=== PATIENT | male | born 1940 | race Caucasian/White ===

== ENCOUNTER → 2016-12-17 | Outpatient (CLI) | payer MEDICARE, OTHER ==
[2016-12-17 09:05] LABS: ALANINE AMINOTRANSFERASE 32 U/L (21-72); ALBUMIN 4.4 g/dL (3.5-5.0); ALKALINE PHOSPHATASE 24 U/L (38-126); ASPARTATE AMINO TRANSFERASE 28 U/L (17-59); BILIRUBIN,DIRECT 0.2 mg/dL (0.0-0.4); CHOLESTEROL 166.42 mg/dL (0-200); Direct HDL 39 mg/dL (>40); TOTAL PROTEIN 7.1 g/dL (6.3-8.2); TRIGLYCERIDES 164 mg/dL (<150)
[2016-12-17 09:16] LABS: DIRECT LDL 107 mg/dL (<100)
[2016-12-17 09:19] LABS: VLDL CHOLESTEROL 32.8 mg/dL (10-31)
== END ==
LOC: OD 07:26
PROVIDERS: ATTEND Specialist
DX: Z79.899 Other long term (current) drug therapy (principal); E78.4 Other hyperlipidemia
CPT/HCPCS: 36415; 80061; 80076

== ENCOUNTER → 2017-04-15 | Outpatient (CLI) | payer MEDICARE, OTHER ==
[2017-04-15 09:02] LABS: ALANINE AMINOTRANSFERASE 41 U/L (21-72); ALBUMIN 4.3 g/dL (3.5-5.0); ALKALINE PHOSPHATASE 21 U/L (38-126); ASPARTATE AMINO TRANSFERASE 28 U/L (17-59); BILIRUBIN,DIRECT 0.4 mg/dL (0.0-0.4); CHOLESTEROL 153.74 mg/dL (0-200); Direct HDL 37 mg/dL (>40); TOTAL PROTEIN 6.8 g/dL (6.3-8.2); TRIGLYCERIDES 132 mg/dL (<150)
[2017-04-15 09:13] LABS: DIRECT LDL 97 mg/dL (<100)
== END ==
LOC: OD 07:53
PROVIDERS: ATTEND Specialist
DX: E78.4 Other hyperlipidemia (principal); E66.8 Other obesity; I10 Essential (primary) hypertension; I25.10 Atherosclerotic heart disease of native coronary artery without angina pectoris; E03.9 Hypothyroidism, unspecified; I34.0 Nonrheumatic mitral (valve) insufficiency; R01.1 Cardiac murmur, unspecified; R94.31 Abnormal electrocardiogram [ECG] [EKG]; Z95.1 Presence of aortocoronary bypass graft; Z79.899 Other long term (current) drug therapy
CPT/HCPCS: 36415; 80061; 80076

== ENCOUNTER → 2017-10-14 | Outpatient (CLI) | payer MEDICARE, OTHER ==
[2017-10-14 09:00] LABS: ALANINE AMINOTRANSFERASE 35 U/L (21-72); ALBUMIN 4.5 g/dL (3.5-5.0); ASPARTATE AMINO TRANSFERASE 32 U/L (17-59); BILIRUBIN,DIRECT 0.3 mg/dL (0.0-0.4); CHOLESTEROL 159.49 mg/dL (0-200); NEONATAL BILIRUBIN RESULT 0.7 mg/dL (0.1-1.1); TRIGLYCERIDES 163 mg/dL (<150)
[2017-10-14 09:12] LABS: DIRECT LDL 94 mg/dL (<100)
[2017-10-14 09:16] LABS: ALKALINE PHOSPHATASE < 20 U/L (38-126); VLDL CHOLESTEROL 32.6 mg/dL (10-31)
== END ==
LOC: OD 07:59
PROVIDERS: ATTEND Specialist
DX: E78.4 Other hyperlipidemia (principal); I10 Essential (primary) hypertension; I25.10 Atherosclerotic heart disease of native coronary artery without angina pectoris; I34.0 Nonrheumatic mitral (valve) insufficiency; Z95.1 Presence of aortocoronary bypass graft; E03.9 Hypothyroidism, unspecified; R94.31 Abnormal electrocardiogram [ECG] [EKG]; R01.1 Cardiac murmur, unspecified; Z79.899 Other long term (current) drug therapy
CPT/HCPCS: 36415; 80061; 80076

== ENCOUNTER → 2018-04-07 | Outpatient (CLI) | payer MEDICARE, OTHER ==
[2018-04-07 09:10] LABS: ALANINE AMINOTRANSFERASE 31 U/L (21-72); ALBUMIN 4.1 g/dL (3.5-5.0); ASPARTATE AMINO TRANSFERASE 32 U/L (17-59); BILIRUBIN,DIRECT 0.4 mg/dL (0.0-0.4); BILIRUBIN,TOTAL 1.1 mg/dL (0.2-1.3); CHOLESTEROL 136.89 mg/dL (0-200); NEONATAL BILIRUBIN RESULT 0.8 mg/dL (0.1-1.1); TOTAL PROTEIN 6.5 g/dL (6.3-8.2); TRIGLYCERIDES 109 mg/dL (<150)
[2018-04-07 09:21] LABS: DIRECT LDL 96 mg/dL (<100)
[2018-04-07 09:28] LABS: FREE T3 3.11 pg/mL (2.77-5.27); FREE T4 (FREE THYROXINE) 0.93 ng/dL (0.78-2.19)
[2018-04-07 09:35] LABS: ALKALINE PHOSPHATASE < 20 U/L (38-126)
[2018-04-07 09:42] LABS: THYROID STIMULATING HORMONE 3.95 uIU/mL (0.47-4.68)
== END ==
LOC: OD 07:32
PROVIDERS: ATTEND Specialist
DX: E66.8 Other obesity (principal); I10 Essential (primary) hypertension; I34.0 Nonrheumatic mitral (valve) insufficiency; E78.49 Other hyperlipidemia; I25.10 Atherosclerotic heart disease of native coronary artery without angina pectoris; R94.6 Abnormal results of thyroid function studies; Z95.1 Presence of aortocoronary bypass graft; E03.9 Hypothyroidism, unspecified; R94.31 Abnormal electrocardiogram [ECG] [EKG]; R01.1 Cardiac murmur, unspecified; Z79.899 Other long term (current) drug therapy
CPT/HCPCS: 36415; 80061; 80076; 84439; 84443; 84481

== ENCOUNTER → 2019-01-14 | Outpatient (CLI) | payer MEDICARE, OTHER ==
[2019-01-14 09:14] LABS: ALBUMIN 4.3 g/dL (3.5-5.0); ALKALINE PHOSPHATASE 22 U/L (38-126); ASPARTATE AMINO TRANSFERASE 29 U/L (17-59); BILIRUBIN,DIRECT 0.2 mg/dL (0.0-0.4); BILIRUBIN,TOTAL 1.1 mg/dL (0.2-1.3); TOTAL PROTEIN 6.4 g/dL (6.3-8.2)
[2019-01-15 09:54] LABS: CHOLESTEROL 143.66 mg/dL (0-200); DIRECT LDL 96 mg/dL (<100); TRIGLYCERIDES 129 mg/dL (<150); VLDL CHOLESTEROL 25.8 mg/dL (10-31)
== END ==
LOC: OD 07:47
PROVIDERS: ATTEND Specialist
DX: E78.49 Other hyperlipidemia (principal); I10 Essential (primary) hypertension; I25.10 Atherosclerotic heart disease of native coronary artery without angina pectoris
CPT/HCPCS: 36415; 80061; 80076

== ENCOUNTER 2019-02-10 09:35 | Day surgery (SDC) | payer MEDICARE, OTHER ==
[~2019-02-10 09:35] MED LIST: BUPIVACAINE HCL 0.75% INJ/PF (7.5 MG/1 ML) 10 ML SDV OS PRN; KETOROLAC TROMETHAMINE 0.45% 4 DROP/0.4 ML DROPERETTE OS PRN; LIDOCAINE 4% INJ/PF (40 MG/ML) 5 ML AMPUL OS PRN
[2019-02-10] MEDS: TETRACAINE HCL 0.5% OPH SOLN 4 ML OS PRN ×3 (10:30→11:16)
[2019-02-10] MEDS: BESIFLOXACIN HCL 0.6% OPH SUSP 5 ML BOTTLE OS PRN ×4 (10:30→11:42)
[2019-02-10] MEDS: TROPICAMIDE 1% OPH SOLN 15 ML OS PRN ×3 (10:30→10:55)
[2019-02-10] MEDS: CYCLOPENTOLATE 0.2%/PHENYLEPHRINE 1% OPH SOLN 2 ML OS PRN ×3 (10:30→10:55)
[2019-02-10] MEDS ORDERED: MIDAZOLAM 2 MG/2 ML INJ ONE (10:57)
[2019-02-10] MEDS: EPINEPHRINE INJ/PF 1 MG/1 ML AMPULE ONE ×2 (11:29)
[2019-02-10] MEDS: CHONDR SU A NA/HYALUR INTRAOC KIT (SURGICARE) ONE ×2 (11:29)
[2019-02-10] MEDS: LIDOCAINE 1% INJ-PF (10 MG/ML) 30 ML SDV ONE ×2 (11:29)
[2019-02-10] MEDS: DORZOLAMIDE HCL 2%/TIMOLOL MALEAT 0.5% OPH SOLN 10 ML OS PRN ×2 (11:42)
--- NOTE | 2019-02-10 13:44 | Operative Report ---
Operative Report-[facility] Operative Report: DATE OF SURGERY: 02/10/2019 PREOPERATIVE DIAGNOSIS: CATARACT, LEFT EYE. POSTOPERATIVE DIAGNOSIS: CATARACT, LEFT EYE. PROCEDURE PERFORMED: PHACOEMULSIFICATION WITH POSTERIOR CHAMBER INTRAOCULAR LENS, LEFT EYE. Intraocular Lens Model : ZCB00 20.0 Total Phaco Time: 5.66 CDE SURGEON: CARLOS COOPER MD ANESTHESIA: TOPICAL WITH MAC. INDICATIONS FOR SURGERY: Difficultly driving at night and seen words on TV PROCEDURE: The patient was brought to the Operating Room and placed on the operative table. Following tetracaine drops, topical anesthesia was administered. This consisted of instrument wipe pledgets soaked in a solution of 4% Xylocaine mixed with 0.75% Marcaine in a 1:2 ratio. A 2 x 1 cm pledget was placed in the superior fornix. A 1 x 1 cm pledget was placed in the inferior fornix. The eye was patched shut for 5 minutes. The patch was removed. The eye was sterilely prepped and draped in the usual manner. Lid speculum was placed in the eye. The pledgets were removed. 4-0 black silk sutures were placed around the superior and the inferior rectus muscles to be used as traction. A conjunctival peritomy was made at the 10 o'clock position. Hemostasis was obtained with bipolar cautery. A posterior limbal groove was created using a crescent knife and dissected anteriorly towards the cornea. A sharp point blade was used to create a paracentesis site at the 2 o'clock position. 0.2 cc non preserved Lidocaine was injected into the anterior chamber. A 2.4 mm keratome was used to enter the anterior chamber through the groove. Viscoelastic was injected into the anterior chamber. An anterior capsulotomy was performed using Utrata forceps in a capsulorrhexis fashion. Hydrodissection and hydrodelineation were performed. Phacoemulsification was performed in [id number] technique. Following this, the I/A unit was used to remove residual cortex. Viscoelastic was injected into the capsular bag. The Intraocular lens was placed in the capsular bag. The I/A unit was used to remove residual viscoelastic. The wound was seen to be watertight under high and low pressure, and no sutures were placed. The intraocular lens was well centered. The pressure was adjusted in the eye to normal pressure. The 4-0 black silk sutures and lid speculum were removed. The eye was shielded after Besivance and Cosopt drops were placed. The patient tolerated the procedure well and was sent to the Recovery Room in good condition.
== END 2019-02-10 12:36 | disposition home or self-care (01) ==
LOC: SC 09:35
PROVIDERS: ATTEND Ophthalmology
DX: H25.813 Combined forms of age-related cataract, bilateral (principal); H04.123 Dry eye syndrome of bilateral lacrimal glands; H35.3132 Nonexudative age-related macular degeneration, bilateral, intermediate dry stage; I11.9 Hypertensive heart disease without heart failure; E78.00 Pure hypercholesterolemia, unspecified; E03.9 Hypothyroidism, unspecified; Z87.891 Personal history of nicotine dependence; Z79.82 Long term (current) use of aspirin; Z79.899 Other long term (current) drug therapy
CPT/HCPCS: 66984; 00142; V2632; J2250; J3490 ×5; A9270; J0171; 142

== ENCOUNTER 2019-03-05 08:23 | Day surgery (SDC) | payer MEDICARE, OTHER ==
[~2019-03-05 08:23] MED LIST changes: +BUPIVACAINE HCL 0.75% INJ/PF (7.5 MG/1 ML) 10 ML SDV OD PRN; -BUPIVACAINE HCL 0.75% INJ/PF (7.5 MG/1 ML) 10 ML SDV OS PRN; +KETOROLAC TROMETHAMINE 0.45% 4 DROP/0.4 ML DROPERETTE OD PRN; -KETOROLAC TROMETHAMINE 0.45% 4 DROP/0.4 ML DROPERETTE OS PRN; +LIDOCAINE 4% INJ/PF (40 MG/ML) 5 ML AMPUL OD PRN; -LIDOCAINE 4% INJ/PF (40 MG/ML) 5 ML AMPUL OS PRN
[2019-03-05] MEDS: BESIFLOXACIN HCL 0.6% OPH SUSP 5 ML BOTTLE OD PRN ×4 (09:34→10:38)
[2019-03-05] MEDS: TROPICAMIDE 1% OPH SOLN 15 ML OD PRN ×3 (09:34→09:55)
[2019-03-05] MEDS: CYCLOPENTOLATE 0.2%/PHENYLEPHRINE 1% OPH SOLN 2 ML OD PRN ×3 (09:34→09:55)
[2019-03-05] MEDS: TETRACAINE HCL 0.5% OPH SOLN 4 ML OD PRN ×4 (09:35→10:13)
[2019-03-05] MEDS ORDERED: MIDAZOLAM 2 MG/2 ML INJ ONE (09:51)
[2019-03-05] MEDS: CHONDR SU A NA/HYALUR INTRAOC KIT (SURGICARE) ONE ×2 (10:24)
[2019-03-05] MEDS: DORZOLAMIDE HCL 2%/TIMOLOL MALEAT 0.5% OPH SOLN 10 ML OD PRN ×2 (10:24)
[2019-03-05] MEDS: EPINEPHRINE INJ/PF 1 MG/1 ML AMPULE ONE ×2 (10:24)
[2019-03-05] MEDS: LIDOCAINE 1% INJ-PF (10 MG/ML) 30 ML SDV ONE ×2 (10:24)
[2019-03-05] MEDS ORDERED: KETOROLAC TROMETHAMINE 0.45% 4 DROP/0.4 ML DROPERETTE OP ONE (11:14)
--- NOTE | 2019-03-05 17:53 | Operative Report ---
Operative Report-[facility] Operative Report: DATE OF SURGERY: 03/05/2019 PREOPERATIVE DIAGNOSIS: CATARACT, RIGHT EYE. POSTOPERATIVE DIAGNOSIS: CATARACT, RIGHT EYE. PROCEDURE PERFORMED: PHACOEMULSIFICATION WITH POSTERIOR CHAMBER INTRAOCULAR LENS, RIGHT EYE. Intraocular Lens Model : Z [id number] Total Phaco Time: 49 seconds SURGEON: CARLOS COOPER MD ANESTHESIA: TOPICAL WITH MAC. INDICATIONS FOR SURGERY: Difficulty seen the clock on the wall. PROCEDURE: The patient was brought to the Operating Room and placed on the operative table. Following tetracaine drops, topical anesthesia was administered. This consisted of instrument wipe pledgets soaked in a solution of 4% Xylocaine mixed with 0.75% Marcaine in a 1:2 ratio. A 2 x 1 cm pledget was placed in the superior fornix. A 1 x 1 cm pledget was placed in the inferior fornix. The eye was patched shut for 5 minutes. The patch was removed. The eye was sterilely prepped and draped in the usual manner. Lid speculum was placed in the eye. The pledgets were removed. 4-0 black silk sutures were placed around the superior and the inferior rectus muscles to be used as traction. A conjunctival peritomy was made at the 10 o'clock position. Hemostasis was obtained with bipolar cautery. A posterior limbal groove was created using a crescent knife and dissected anteriorly towards the cornea. A sharp point blade was used to create a paracentesis site at the 2 o'clock position. 0.2 cc non preserved Lidocaine was injected into the anterior chamber. A 2.4 mm keratome was used to enter the anterior chamber through the groove. Viscoelastic was injected into the anterior chamber. An anterior capsulotomy was performed using Utrata forceps in a capsulorrhexis fashion. Hydrodissection and hydrodelineation were performed. Phacoemulsification was performed in [id number] technique. Following this, the I/A unit was used to remove residual cortex. Viscoelastic was injected into the capsular bag. The Intraocular lens was placed in the capsular bag. The I/A unit was used to remove residual viscoelastic. The wound was seen to be watertight under high and low pressure, and no sutures were placed. The intraocular lens was well centered. The pressure was adjusted in the eye to normal pressure. The 4-0 black silk sutures and lid speculum were removed. The eye was shielded after Besivance and Cosopt drops were placed. The patient tolerated the procedure well and was sent to the Recovery Room in good condition.
== END 2019-03-05 11:30 | disposition home or self-care (01) ==
LOC: SC 08:23
PROVIDERS: ATTEND Ophthalmology
DX: H25.811 Combined forms of age-related cataract, right eye (principal); Z96.1 Presence of intraocular lens; I10 Essential (primary) hypertension; Z79.899 Other long term (current) drug therapy; E07.9 Disorder of thyroid, unspecified; Z79.82 Long term (current) use of aspirin
CPT/HCPCS: 66984; 00142; V2632; J2250; J3490 ×5; A9270; J0171; 142

== ENCOUNTER → 2019-05-19 | Outpatient (CLI) | payer MEDICARE, OTHER ==
[2019-05-19 09:01] LABS: ALBUMIN 4.2 g/dL (3.5-5.0); ALKALINE PHOSPHATASE 24 U/L (38-126); ASPARTATE AMINO TRANSFERASE 31 U/L (17-59); BILIRUBIN,TOTAL 0.6 mg/dL (0.2-1.3); CHOLESTEROL 137.48 mg/dL (0-200); TRIGLYCERIDES 192 mg/dL (<150)
[2019-05-19 09:12] LABS: DIRECT LDL 82 mg/dL (<100)
[2019-05-19 09:14] LABS: VLDL CHOLESTEROL 38.4 mg/dL (10-31)
== END ==
LOC: OD 07:40
PROVIDERS: ATTEND Specialist
DX: E78.49 Other hyperlipidemia (principal); I10 Essential (primary) hypertension; I25.10 Atherosclerotic heart disease of native coronary artery without angina pectoris; I34.0 Nonrheumatic mitral (valve) insufficiency; E66.8 Other obesity; E03.9 Hypothyroidism, unspecified; R94.31 Abnormal electrocardiogram [ECG] [EKG]; R01.1 Cardiac murmur, unspecified; Z95.1 Presence of aortocoronary bypass graft; Z79.899 Other long term (current) drug therapy
CPT/HCPCS: 36415; 80061; 80076

== ENCOUNTER → 2020-02-08 | Outpatient (CLI) | payer MEDICARE ==
--- NOTE | 2020-02-09 13:24 | RADIOLOGY REPORT (SQ) ---
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 TECHNIQUE: Grayscale ultrasound, Doppler velocity and spectra, and color Doppler images acquired of the extra-cranial carotid and vertebral arteries. Images stored on PACS. LIMITATIONS: None. FINDINGS: RIGHT CAROTID CCA Velocities: Within normal limits. ICA Velocities Peak systolic 113 cm/s. End diastolic 27 cm/s. Proximal ICA/CCA peak systolic ratio 1.6. There is some soft plaque. LEFT CAROTID CCA Velocities: Within normal limits. ICA Velocities Peak systolic 92 cm/s. End diastolic 24 cm/s. Proximal ICA/CCA peak systolic ratio 1.1. There is some hard plaque in the bulb and proximal ICA. VERTEBRAL ARTERIES: Antegrade flow. Normal waveforms. SUBCLAVIAN ARTERIES: No finding. OTHER: No other significant finding. IMPRESSION: NO HEMODYNAMICALLY SIGNIFICANT STENOSIS. COMMENT: Quality ID #[id number]: Velocity criteria are extrapolated from the diameter data as defined by t he Society of Radiologists in Ultrasound Consensus Conference. Radiology 2003: 229; 340-346. TECHNICAL DOCUMENTATION: JOB ID: [id number] 2010 [email or web address]- All Rights Reserved Reading location - IP/workstation name: [email or web address]
== END ==
LOC: SP 14:33
PROVIDERS: ATTEND Ophthalmology
DX: H34.212 Partial retinal artery occlusion, left eye (principal)
CPT/HCPCS: 93880